=== PATIENT | female | born 1995 | race African-American/Black ===

== ENCOUNTER 2021-01-31 10:12 | Emergency (ER) | payer OTHER ==
[~2021-01-31] VITALS: Ht 154.9 cm; Wt 40.8 kg
== END 2021-01-31 13:19 | disposition home or self-care (01) ==
LOC: ER 10:12
DX: S90.111A Contusion of right great toe without damage to nail, initial encounter (principal); W23.0XXA Caught, crushed, jammed, or pinched between moving objects, initial encounter; Y93.89 Activity, other specified; Y92.89 Other specified places as the place of occurrence of the external cause; Y99.8 Other external cause status

== ENCOUNTER 2023-06-12 12:10 | Emergency (ER) | payer OTHER ==
[~2023-06-12] VITALS: Ht 154.9 cm; Wt 52.6 kg
== END 2023-06-12 13:26 | disposition home or self-care (01) ==
LOC: ER 12:11
DX: N76.4 Abscess of vulva (principal)